=== PATIENT | female | born 2000 | race African-American/Black ===

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

== ENCOUNTER 2020-04-04 18:26 | Emergency (ER) | payer OTHER ==
[2020-04-04 18:38] VITALS: BP 149/79; PULSE 77; TEMP 98.7; BMI 32.9
== END 2020-04-04 18:42 | disposition home or self-care (01) ==
LOC: JER 18:26
DX: J00 Acute nasopharyngitis [common cold] (principal)
CPT/HCPCS: 99283-25; C9803; U0003

== ENCOUNTER 2025-02-18 04:00 | Emergency (ER) | payer OTHER ==
[2025-02-18 04:08] VITALS: BP 137/86; PULSE 74; RESP 18; TEMP 97.9; BMI 32.1
[2025-02-18] MEDS ORDERED: ONDANSETRON 4 MG/2 ML VIAL ONE (04:22)
[2025-02-18] MEDS ORDERED: FAMOTIDINE 20 MG/50 ML IVPB 20 MG/50 ML MG IVPB ONE (04:22)
[2025-02-18] MEDS ORDERED: ACETAMINOPHEN INJECTION 100 ML ONE (04:22)
[2025-02-18] MEDS: LACTATED RINGERS SOLUTION 1000 ML INFUS.BAG IV ONE (04:43)
[2025-02-18] MEDS: FAMOTIDINE 20 MG/50 ML IVPB 20 MG/50 ML MG IVPB ONE (04:44)
[2025-02-18] MEDS: ONDANSETRON 4 MG/2 ML VIAL IVPUSH ONE (04:44)
[2025-02-18] MEDS: ACETAMINOPHEN 1000 MG/100 ML BAG IVPB ONE (04:44)
[2025-02-18] MEDS ORDERED: HALOPERIDOL LACTATE 5 MG/ML ONE (04:52)
[2025-02-18] MEDS: HALOPERIDOL LACTATE 5 MG/ML IM ONE (05:01)
[2025-02-18 05:02] LABS: ABSOLUTE IMMATURE GRANULOCYTES 0.01 x10^3/uL (0.0-0.031); BASOPHILS # 0.04 x10^3/uL (0.01-0.08); EOSINOPHIL % 0.5 % (0.7-5.8); EOSINOPHILS # 0.04 x10^3/uL (0.04-0.36); MCHC 32.4 g/dl (32.2-35.5); MEAN CELL VOLUME 88.5 fl (79.4-94.8); MEAN PLT VOLUME 11.3 fl (9.4-12.3); MONOCYTE # 0.85 x10^3/uL (0.24-0.86); MONOCYTE % 10.9 % (4.7-12.5); RDW 14.6 % (12.1-16.5)
[2025-02-18 05:28] LABS: GLUCOSE,RANDOM 95.0 mg/dL (74-106)
[2025-02-18 05:29] LABS: TOT PROT 7.8 g/dl (6.4-8.2)
[2025-02-18 05:30] LABS: CO2 23.0 mmol/L (21-32)
[2025-02-18 05:31] LABS: ALK PHOS 83.0 U/L (40-150)
[2025-02-18 05:34] LABS: CREATININE 0.61 mg/dL (0.55-1.3); SGOT/AST 21.0 U/L (5-34); SGPT/ALT 8.0 U/L (0-55)
[2025-02-18 05:54] LABS: HCV DIAGNOSTIC IN-HOUSE W/RFLX NON-REACTIVE (NONREACTIVE)
[2025-02-18 05:55] LABS: HIV INTERPRETATION NEGATIVE (NEGATIVE)
== END 2025-02-18 06:59 | disposition home or self-care (01) ==
LOC: JER 04:00
PROC: 3E033GC Introduction of Other Therapeutic Substance into Peripheral Vein, Percutaneous Approach (ICD-10-PCS; principal; 2025-02-18)
PROC: 3E033NZ Introduction of Analgesics, Hypnotics, Sedatives into Peripheral Vein, Percutaneous Approach (ICD-10-PCS; 2025-02-18)
PROC: 3E033GC Introduction of Other Therapeutic Substance into Peripheral Vein, Percutaneous Approach (ICD-10-PCS; 2025-02-18)
PROC: 3E023GC Introduction of Other Therapeutic Substance into Muscle, Percutaneous Approach (ICD-10-PCS; 2025-02-18)
DX: R11.2 Nausea with vomiting, unspecified (principal); R10.84 Generalized abdominal pain; F12.90 Cannabis use, unspecified, uncomplicated
CPT/HCPCS: 36415; 74177-TC; 80053; 83690; 84703; 85025; 86803; 87389; 99285-25; Q9967